=== PATIENT | male | born 1950 | race Caucasian/White ===

== ENCOUNTER → 2020-01-16 11:12 | Outpatient (BNVA) | payer MEDICARE, OTHER, SELFPAY | PROVIDERS: Family Provider Family Medicine; PCP Family Medicine; Visit Provider Nurse Practitioner Family | DX: Z11.59 Encounter for screening for other viral diseases (principal); J06.9 Acute upper respiratory infection, unspecified | CPT/HCPCS: 87400; 87635 ==

== ENCOUNTER → 2020-01-31 11:33 | Outpatient (BNVA) | payer MEDICARE, OTHER, SELFPAY | PROVIDERS: Family Provider Family Medicine; PCP Family Medicine; Visit Provider Emergency Medicine | DX: I51.7 Cardiomegaly (principal); R04.2 Hemoptysis; Z95.0 Presence of cardiac pacemaker | CPT/HCPCS: 71046 ==

== ENCOUNTER → 2020-02-17 09:53 | Outpatient (BNVA) | payer MEDICARE, OTHER, SELFPAY | PROVIDERS: Family Provider Family Medicine; PCP Family Medicine; Visit Provider Emergency Medicine | DX: M79.645 Pain in left finger(s) (principal); M25.521 Pain in right elbow; M79.89 Other specified soft tissue disorders | CPT/HCPCS: 73080; 73130 ==

== ENCOUNTER → 2022-12-06 11:12 | Outpatient (BNVA) | payer MEDICARE, OTHER, SELFPAY | PROVIDERS: Family Provider Family Medicine; PCP Family Medicine; Visit Provider Nurse Practitioner Family | DX: T63.301A Toxic effect of unspecified spider venom, accidental (unintentional), initial encounter (principal) | CPT/HCPCS: 80069; 85025 ==